=== PATIENT | male | born 1955 | race Caucasian/White ===

== ENCOUNTER 2017-01-27 20:48 | Emergency (ER) | payer OTHER ==
--- NOTE | ~2017-01-27 | CR72 ---
[facility] A Service of [facility] & [facility] RADIOLOGY TEXT RESULTS PATIENT: RAMON WALKER LOCATION: [facility] : 53 UNIT #: [id number] AGE: [address]: Paul Oglesby MD SEX: M ORDER DR: [id number] [facility] [address]. [place], [place] [address] [id number] MR#: [id number] Acc #: [id number] NAME: RAMON WALKER : 1955 SEX: M STUDY DATE/TIME: 01/27/2017 20:15 UNIT: [facility] ROOM: STUDY DESCRIPTION: CR Chest Single View Portable Attending Physician: Paul Oglesby M.D. Ordering Physician: Paul Oglesby M.D. Primary Care Physician: Emmanuel Esqueda M.D. MEDICAL IMAGING REPORT This report is preliminary unless electronic signature is present EXAM Portable chest 01/27/2017 HISTORY Shortness of breath beginning today. Benign essential hypertension, atrial fibrillation, smoking history for 40 years. FINDINGS The heart is top normal in size. The lungs are hyperinflated with emphysematous and fibrotic changes characteristic of COPD. No airspace consolidation is seen. There are no pleural effusions. IMPRESSION COPD. No active pulmonary disease. Dictated by... Carlos Eduardo Davila M.D. THIS IS AN ELECTRONICALLY VERIFIED REPORT Carlos Eduardo Davila M.D. at 01/28/2017 2:15 PM JESSIKA/meg TD: 01/28/2017 09:43 JOB #: [id number] MEDICAL IMAGING REPORT COPY
--- NOTE | ~2017-01-27 | CT16 ---
[facility] A Service of [facility] & [facility] RADIOLOGY TEXT RESULTS PATIENT: RAMON WALKER LOCATION: [facility] : 53 UNIT #: [id number] AGE: [address]: Paul Oglesby MD SEX: M ORDER DR: [id number] [facility] [address] [place], [place] [address] [id number] E MR#: [id number] [facility] #: [id number] NAME: RAMON WALKER : 1955 SEX: M STUDY DATE/TIME: 01/27/2017 22:34 UNIT: [facility] ROOM: STUDY DESCRIPTION: CT Angio Chest for PE Attending Physician: Paul Oglesby M.D. Ordering Physician: Paul Oglesby M.D. Primary Care Physician: Emmanuel Esqueda M.D. MEDICAL IMAGING REPORT This report is preliminary unless electronic signature is present EXAM CT angio of the chest with contrast pulmonary embolism protocol. Date 01/27/2017. HISTORY 61-year-old male with shortness breath, chest tightness for 1 week. D-dimer 857. Atrial fibrillation. Smoking history. COMPARISON AP portable chest 01/27/2017 at 20:15. No prior CT chest for comparison. PROCEDURE 2 mL axial images through the chest after IV contrast administration. 3-D coronal MIP reformatted images were obtained. This CT exam was performed with one or more of the following radiation dose reduction techniques: automatic exposure control, adjustment of mA and/or kV according to patient size, and iterative reconstruction. FINDINGS No pulmonary embolism is seen. Subsegmental vessels within the bilateral lower lobes are degraded by respiratory motion. Small bilateral pleural effusions are present, left greater than right. There is interstitial and alveolar disease changes are present bilateral lower lobes, which may represent atelectasis. Pneumonia not excluded. Mild atelectasis in the posterior left upper lobe and lingula. Heart size within normal limits. No aortic aneurysm or aortic dissection is seen. Small scattered cysts within the liver. The remainder of included upper abdominal organs are unremarkable. No acute osseous abnormalities are identified. IMPRESSION 1. No pulmonary embolism. No aortic aneurysm or aortic dissection. STS. [facility] A Service of [facility] & [facility] RADIOLOGY TEXT RESULTS PATIENT: RAMON WALKER LOCATION: [facility] #: [id number] : 53 UNIT #: [id number] AGE: [address]: Paul Oglesby MD SEX: M ORDER DR: 2. Interstitial and alveolar disease changes in bilateral lower lobes. Findings could represent changes of atelectasis. Pneumonia not excluded. Mild atelectasis in the lingula. 3. Small left greater right pleural effusions. 4. Small hepatic cysts. Dictated by... Monica Rodarte M.D. THIS IS AN ELECTRONICALLY VERIFIED REPORT Monica Rodarte M.D. at 01/28/2017 9:58 PM MJ/celestina TD: 01/28/2017 10:27 JOB #: [id number] MEDICAL IMAGING REPORT COPY
--- NOTE | ~2017-01-27 | EKG ---
PATIENT: RAMON WALKER UNIT #: [id number] Ventricular Rate: 130 BPM Atrial Rate: 133 BPM QRS Duration: 100 ms Q-T Interval: 344 ms QTC Calculation(Bezet): 506 ms Calculated R [place]: -14 degrees Calculated T [place]: 38 degrees Diagnosis Line: Atrial fibrillation with rapid ventricular Diagnosis Line: response Diagnosis Line: Incomplete right bundle branch block Diagnosis Line: Nonspecific ST and T wave abnormality Diagnosis Line: Abnormal ECG Diagnosis Line: No previous ECGs available Diagnosis Line: Confirmed by LIZBETH ASHLEY MD ([id number]) on Diagnosis Line: 01/29/2017 12:04:46 AM INTERPRETING MD: DION AMBROSE
[2017-01-27 20:20] LABS: BASOPHIL# 0.1 X10e3 (0-0.3); BASOPHIL% 0.8 % (0-2.5); EOSINOPHIL# 0.4 X10e3 (0-0.7); EOSINOPHIL% 2.8 % (0.0-7.0); HEMATOCRIT 50.1 % (38.0-50.0); HEMOGLOBIN 16.3 gm/dL (13.0-16.0); LYMPHOCYTE# 2.4 X10e3 (1.0-3.5); LYMPHOCYTE% 18.3 % (17.0-45.0); MEAN CELL VOLUME 92.5 FL (83-96); MEAN CORPUSCULAR HEMOGLOBIN 30.1 PG (28-34); MEAN CORPUSCULAR HGB CONC 32.5 g/dL (30-36); MEAN PLATELET VOLUME 9.1 FL (6.5-11.5); MONOCYTE# 1.3 X10e3 (0-1.0); MONOCYTE% 9.7 % (3.0-12.0); NEUTROPHIL# 8.8 X10e3 (1.5-7.1); NEUTROPHIL% 68.4 % (40-75); PLATELET COUNT 213 X10e3 (140-420); RED BLOOD COUNT 5.41 X10e (3.90-5.60); RED CELL DISTRIBUTION WIDTH 13.8 % (11.0-15.5); WHITE BLOOD COUNT 12.9 X10e3 (4.0-10.5)
[2017-01-27 20:22] LABS: ARTERIAL BLD GAS O2 SATURATION 92.1 % (90.0-100.0); ARTERIAL BLOOD GAS CARBOXY HB 2.8 %sat (0.0-9.0); ARTERIAL BLOOD GAS HCO3 23.7 mmol/L; ARTERIAL BLOOD GAS MET HB 0.8 %sat (0.0-2.0); ARTERIAL BLOOD GAS PCO2 34.9 mmHg (35.0-45.0)
[2017-01-27 20:23] LABS: DIFF IND NO
[2017-01-27 20:23] LABS: ARTERIAL BLOOD GAS ALLEN TEST NORMAL; ARTERIAL BLOOD GAS ART SITE RIGHT RADIAL; ARTERIAL BLOOD GAS DELIVERY NASAL CANNULA; ARTERIAL BLOOD GAS PO2 70.2 mmHg (80.0-100); ARTERIAL DRAW? YES
[2017-01-27 20:34] LABS: POC - CKMB 1.3 ng/mL (0.0-7.9); POC - TROPONIN 0.1 ng/mL (<=0.05)
[2017-01-27 20:39] LABS: INR 1.1; PARTIAL THROMBOPLASTIN TIME 32.2 SECONDS (23.5-31.3); PROTHROMBIN TIME (PATIENT) 11.4 SECONDS (9.6-11.5)
[2017-01-27 20:44] LABS: ALBUMIN SERUM 3.7 g/dL (3.5-5.0); BILIRUBIN, DIRECT 0.2 mg/dL (0.0-0.2); BILIRUBIN,INDIRECT 0.9 mg/dL (0.0-0.9); BILIRUBIN,TOTAL 1.1 mg/dL (0.2-2.0); BUN/CREATININE RATIO 12.85; CALCIUM SERUM 8.6 mg/dL (8.4-10.2); CREATININE SERUM 1.4 mg/dL (0.6-1.4); GLOM FILT RATE Estimated 54.6 mL/min (>60); MAGNESIUM 1.8 mg/dL (1.6-3.0); POTASSIUM 3.6 mmol/L (3.5-5.1); PROTEIN TOTAL SERUM 6.7 g/dL (6.0-8.3)
[~2017-01-27 20:48] MED LIST: COREG6.25 MG PO; FAMVIR500 MG PO; HYDRALAZINE HC100 MG PO; HYDROCHLOROTHIA25 MG PO; ISMO20 M2 PO; PRINIVIL20 M1 PO; TOBRADEX EYE DRO5 ML OS
[2017-01-27 22:10] LABS: POC - CKMB <1.0 ng/mL (0.0-7.9); POC - TROPONIN <0.05 ng/mL (<=0.05)
== END 2017-01-27 23:23 | disposition left against medical advice (07) ==
LOC: CED 20:48
PROVIDERS: Emergency Medicine
DX: I48.91 Unspecified atrial fibrillation (principal); I10 Essential (primary) hypertension; Z79.899 Other long term (current) drug therapy
CPT/HCPCS: 36415; 36600; 71010; 71275; 80048; 80076; 82553; 82803; 83735; 83880; 84484; 85025; 85379; 85610; 85730; 93005; 94640; 96374; 96375; 99291; J2060; J2930; Q9967

== ENCOUNTER 2017-03-07 15:01 | Observation (INO) | payer OTHER ==
--- NOTE | ~2017-03-07 | CO ---
Unit #: [id number] #: [id number] Patient: CLEM WALKER [id number] [address] [place], [place] [address] [id number] I MR#: [id number] NAME: CLEM WALKER ROOM: 573 Age: 61 Sex: M Admission Date: 03/07/2017 : 1955 Attending Physician: Joanne Godwin M.D. Primary Care Physician: Conrad Craven M.D. Consultation Date: 03/08/2017 CONSULTATION REPORT REASON FOR CONSULTATION Chronic obstructive pulmonary disease. HISTORY OF PRESENT ILLNESS The patient is a 61-year-old gentleman who has smoked 1.5 packs of cigarettes daily for 40 years. He presents to the hospital for evaluation of atrial fibrillation. He has been found to have severe cardiomyopathy with an ejection fraction of 10%-15%. He apparently was at the emergency room approximately six weeks ago with shortness of breath, atrial fibrillation and wheezing. He was treated with Levaquin for possible pneumonia found on CT scan and a Medrol Dosepak. He was given a Ventolin inhaler. He did improve, but once again worsened. Currently he is feeling better. He rarely wheezes, primarily when he lays down. No sputum production, fever, chest pain or hemoptysis. PAST MEDICAL HISTORY 1. Hypertension. 2. Cardiomyopathy. 3. Atrial fibrillation. 4. Likely chronic obstructive pulmonary disease. SOCIAL HISTORY As above. Smokes 1.5 packs of cigarettes daily. He said he quit yesterday. 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 FAMILY HISTORY No familial lung disease. ALLERGIES No known drug allergies. HOME MEDICATIONS 1. Coreg. 2. Hydrochlorothiazide. 3. Hydralazine. 4. Ismo. 5. Prinivil. 6. Ventolin inhaler. 7. He has completed his Medrol Dosepak and Levaquin. REVIEW OF SYSTEMS Feels otherwise fairly well. No difficulty swallowing. No hematochezia, melena, hematemesis, hematuria, dysuria, focal weakness, paresthesias, leg pain, swelling, fever, chills, weight loss. He denies any snoring. He Unit #: [id number] #: [id number] Patient: CLEM WALKER says his says no. He does have occasional daytime sleepiness. PHYSICAL EXAMINATION GENERAL: The gentleman is pleasant, awake and alert. VITALS: Afebrile, pulse 83, respiratory rate 18, blood pressure 154/115, height 6'6", 335 pounds, BMI 38. HEENT: Pupils equal, found and reactive to light. Sclerae anicteric. Head atraumatic. NECK: Supple. No supraclavicular or cervical adenopathy appreciated. He does have a moore. Mallampati class 4 oropharynx. CHEST: Decreased breath sounds. Mildly prolonged expiratory phase. No consolidation. HEART: Irregular rhythm, controlled rate, possible soft murmur. ABDOMEN: Soft and nontender. No hepatomegaly or rebound. EXTREMITIES: No clubbing, cyanosis or edema. No calf tenderness. SKIN: Warm and dry without rash or diaphoresis. NEUROLOGIC: Grossly intact. No focal muscle or sensory deficits. In fact, he is walking around the nursing unit without difficulty. DIAGNOSTIC STUDIES IMAGING: Chest x-ray possibly some interstitial edema, cardiomegaly. CT scan last month small bilateral pleural effusions. Some faint bibasilar infiltrates, most consistent with atelectasis. He was treated for pneumonia. LABORATORY: BUN 18, creatinine 1.0, INR normal. White blood cell count 9.9, hemoglobin 17, platelets 232. CARDIOVASCULAR: EKG atrial fibrillation. Nonspecific ST-T wave changes. ASSESSMENT 1. Chronic obstructive pulmonary disease. Possibly severe. 2. Atrial fibrillation. 3. Severe left ventricular dysfunction. 4. Suspect sleep apnea with body habitus, daytime sleepiness. 5. Polycythemia, possibly related to nocturnal hypoxemia. 6. Hypertension with elevated blood pressure. PLAN No smoking is of great benefit. This was discussed with the patient. He seems interested in trying, but knows it will be difficult. Will add inhaled corticosteroids and long-acting beta agonist and consider long-acting anticholinergics in the office. Ultimately he will need outpatient followup with PFTs. Given his severe cardiomyopathy and suspicion for sleep apnea, he should undergo nocturnal polysomnography as an outpatient as well. Thank you very much for allowing me to participate in the care of Mr. Walker. Dictated by... Clem Kaminski M.D. Jonelle TD: 03/08/2017 12:00 Unit #: [id number] #: [id number] Patient: CLEM WALKER JOB #: [id number] CC: Kamini Ayers M.D. CONSULTATION REPORT Page 1 of 1 X Clem Kaminski MD CONSULTATION REPORT
--- NOTE | ~2017-03-07 | EKG ---
PATIENT: RAMON WALKER UNIT #: [id number] Ventricular Rate: 86 BPM Atrial Rate: 78 BPM QRS Duration: 96 ms Q-T Interval: 422 ms QTC Calculation(Bezet): 504 ms Calculated R [place]: -29 degrees Calculated T [place]: -77 degrees Diagnosis Line: Atrial fibrillation Diagnosis Line: ST and T wave abnormality, consider inferior Diagnosis Line: ischemia or digitalis effect Diagnosis Line: Prolonged QT Diagnosis Line: Abnormal ECG Diagnosis Line: When compared with ECG of 08-MAR-2017 07:37, Diagnosis Line: ST now depressed in Inferior leads Diagnosis Line: Confirmed by BERNARDO MCKOY MD ([id number]) on Diagnosis Line: 03/10/2017 6:39:38 AM INTERPRETING MD: EARL
--- NOTE | ~2017-03-07 | EKG ---
PATIENT: RAMON WALKER UNIT #: [id number] Ventricular Rate: 85 BPM Atrial Rate: 84 BPM QRS Duration: 104 ms Q-T Interval: 428 ms QTC Calculation(Bezet): 509 ms Calculated R [place]: -36 degrees Calculated T [place]: -27 degrees Diagnosis Line: Atrial fibrillation Diagnosis Line: Left axis deviation Diagnosis Line: Nonspecific T wave abnormality , probably Diagnosis Line: digitalis effect Diagnosis Line: Prolonged QT Diagnosis Line: Abnormal ECG Diagnosis Line: When compared with ECG of 27-JAN-2017 19:58, Diagnosis Line: Vent. rate has decreased BY 45 BPM Diagnosis Line: Incomplete right bundle branch block is no longer Diagnosis Line: Present Diagnosis Line: Nonspecific T wave abnormality now evident in Diagnosis Line: Anterior leads Diagnosis Line: Confirmed by BERNARDO MCKOY MD ([id number]) on Diagnosis Line: 03/08/2017 9:35:04 PM INTERPRETING MD: EARL
[2017-03-07 19:13] LABS: HEMATOCRIT 52.3 % (38.0-50.0); HEMOGLOBIN 17.1 gm/dL (13.0-16.0); MEAN CELL VOLUME 92.5 FL (83-96); MEAN CORPUSCULAR HEMOGLOBIN 30.1 PG (28-34); MEAN CORPUSCULAR HGB CONC 32.6 g/dL (30-36); MEAN PLATELET VOLUME 9.5 FL (6.5-11.5); RED BLOOD COUNT 5.66 X10e (3.90-5.60); RED CELL DISTRIBUTION WIDTH 14.3 % (11.0-15.5); WHITE BLOOD COUNT 9.9 X10e3 (4.0-10.5)
[2017-03-07 19:24] LABS: INR 1.1; PROTHROMBIN TIME (PATIENT) 11.6 SECONDS (9.6-11.5)
[2017-03-07 19:30] LABS: BUN/CREATININE RATIO 16.36; CALCIUM SERUM 9.3 mg/dL (8.4-10.2); CREATININE SERUM 1.1 mg/dL (0.6-1.4); GLOM FILT RATE Estimated 71.6 mL/min (>60); POTASSIUM 3.5 mmol/L (3.5-5.1); PROTEIN TOTAL SERUM 6.8 g/dL (6.0-8.3)
[2017-03-08 06:52] LABS: CALCIUM SERUM 9.1 mg/dL (8.4-10.2); GLOM FILT RATE Estimated 80.3 mL/min (>60); POTASSIUM 3.5 mmol/L (3.5-5.1)
[2017-03-09 08:19] LABS: HEMATOCRIT 50.5 % (38.0-50.0); HEMOGLOBIN 16.4 gm/dL (13.0-16.0); MEAN CELL VOLUME 92.4 FL (83-96); MEAN CORPUSCULAR HGB CONC 32.4 g/dL (30-36); MEAN PLATELET VOLUME 9.9 FL (6.5-11.5); RED BLOOD COUNT 5.46 X10e (3.90-5.60); WHITE BLOOD COUNT 8.1 X10e3 (4.0-10.5)
[2017-03-09 08:30] LABS: INR 1.1; PARTIAL THROMBOPLASTIN TIME 35.8 SECONDS (23.5-31.3); PROTHROMBIN TIME (PATIENT) 11.4 SECONDS (9.6-11.5)
[2017-03-09 09:05] LABS: CALCIUM SERUM 9.4 mg/dL (8.4-10.2); CREATININE SERUM 1.1 mg/dL (0.6-1.4); GLOM FILT RATE Estimated 71.6 mL/min (>60); POTASSIUM 3.5 mmol/L (3.5-5.1)
[2017-03-09] MEDS ORDERED: CARVEDILOL25 MG PO (16:47)
[2017-03-09] MEDS ORDERED: ISOSORBIDE DINI40 MG PO (16:48)
[2017-03-09] MEDS ORDERED: FUROSEMIDE40 MG PO (16:49)
[2017-03-09] MEDS ORDERED: ALDACTONE25 MG PO (16:50)
[2017-03-09] MEDS ORDERED: CHEWABLE ASPIRI81 MG PO (16:54)
[2017-03-09] MEDS ORDERED: LANOXIN125 MC1 PO (16:56)
[2017-03-09] MEDS ORDERED: SYMBICORT INH (16:57)
[2017-03-09] MEDS ORDERED: NICOTINE TRANSD14 MG TOP (16:59)
[2017-03-09] MEDS ORDERED: ELIQUIS5 MG PO (17:17)
== END 2017-03-09 20:46 | disposition home or self-care (01) | DRG 316 ==
LOC: C5C 15:01
PROVIDERS: Internal Medicine Cardiovascular Disease
DX: I42.8 Other cardiomyopathies (principal); I11.9 Hypertensive heart disease without heart failure; I48.0 Paroxysmal atrial fibrillation; Z79.01 Long term (current) use of anticoagulants; E78.00 Pure hypercholesterolemia, unspecified; J44.9 Chronic obstructive pulmonary disease, unspecified; D75.1 Secondary polycythemia; F17.210 Nicotine dependence, cigarettes, uncomplicated
CPT/HCPCS: 80048; 80053; 84443; 85027; 85610; 85730; 93005; 94640; 94760; 96372; 96374; 96376; C1769; C1887; C1894; G0378; J1644; J1650; J1940; J2250; J3010

== ENCOUNTER → 2017-04-11 | Outpatient (CLI) | payer OTHER ==
[~2017-04-11] MED LIST changes: +ALDACTONE25 MG PO; +CARVEDILOL25 MG PO; +CHEWABLE ASPIRI81 MG PO; +ELIQUIS5 MG PO; +FUROSEMIDE40 MG PO; +ISOSORBIDE DINI40 MG PO; +LANOXIN125 MC1 PO; +NICOTINE TRANSD14 MG TOP; +SYMBICORT INH
--- NOTE | ~2017-04-11 | MU ---
Unit #: [id number] #: [id number] Patient: RAMON WALKER [id number] [address] [address] [id number] O MR#: [id number] NAME: RAMON WALKER : 1955 SEX: M STUDY DATE/TIME: 04/11/2017 UNIT: CN ROOM: STUDY DESCRIPTION: MUGA scan Attending Physician: Joanne Godwin M.D. Referring Physician: Joanne Godwin M.D. Primary Care Physician: Conrad Craven M.D. CARDIOLOGY REPORT PROCEDURE PERFORMED MUGA scan. PROCEDURE Technetium 99m-labeled RBCs, 29.8 mCi, were injected. The images were obtained in left lateral, left anterior oblique and anteroposterior views. The left ventricular ejection fraction is calculated to be 43%. CONCLUSIONS 1. The left ventricular ejection fraction is calculated to be 43% by MUGA scan. 2. The left ventricle appears enlarged. 3. It must be noted that the patient's underlying rhythm is atrial fibrillation. Dictated by... Kamini Ayers/eliazar TD: 04/11/2017 16:23 JOB #: [id number] CARDIOLOGY REPORT Page 1 of 1 X Joanne Godwin MD <ELECTRONICALLY SIGNED> 06/09/17 1429 CARDIOLOGY REPORT
== END | disposition home or self-care (01) ==
LOC: CNUC 13:11
DX: I42.9 Cardiomyopathy, unspecified (principal); I51.7 Cardiomegaly
CPT/HCPCS: 78472; A9560